=== PATIENT | female | born 1970 | race Caucasian/White ===

== ENCOUNTER → 2018-05-26 16:29 | Outpatient (CLI) | payer OTHER, SELFPAY ==
[2018-05-26 17:13] LABS: Appearance Urine UA CLEAR; Bilirubin Urine UA NEGATIVE (NEGATIVE); Color Urine UA YELLOW; Glucose Urine UA NEGATIVE (Normal); Ketones Urine UA TRACE (NEGATIVE); Leukocyte Esterase Urine UA NEGATIVE (NEGATIVE); Nitrite Urine UA NEGATIVE (Negative); Occult Blood Urine UA 3+ (Negative); Protein Urine UA NEGATIVE (Negative); Specific Gravity Urine UA 1.025 (1.000-1.035); Urobilinogen Urine UA 0.2 E.U./dL (0.2)
[2018-05-26 17:28] LABS: Bacteria Urine Few (2-10); Calcium Oxalate Crystals Urine Few; Culture Indicated Urine Cult Not Indicated; RBC Urine 1-5/HPF (0-5/HPF); Squamous Epithelial Cell Urine 0-1 /HPF; WBC Urine 1-5/HPF (0-5/HPF)
[2018-05-26 17:48] LABS: Add Manual Diff / Slide Review NO; Basophils Percent Auto 0.8 % (0-2); Eosinophils Percent Auto 1.7 % (2-4); Hematocrit 38.6 % (36-46); Hemoglobin 12.9 g/dL (12.0-16.0); Lymphocytes Percent Auto 25.8 % (25-40); Mean Corpuscular HGB Conc 33.4 % (30-36); Mean Corpuscular Hemoglobin 31.3 PG (26-34); Mean Corpuscular Volume 93.8 fL (80-100); Monocytes Percent Auto 5.1 % (3-14); Neutrophils Absolute Auto 7900 /uL (3000-5900); Neutrophils Percent Auto 66.6 % (50-75); Platelet Count 390 X10^3/uL (150-400); Red Blood Cell Count 4.11 X10^6/uL (4.0-5.2); Red Cell Distribution Width 13.7 % (11.6-14.8); White Blood Cell Count 11.9 X10^3/uL (4.5-11.0)
[2018-05-26 18:10] LABS: BUN Creatinine Ratio 28.8 (6-22); Blood Urea Nitrogen 23 mg/dL (7-17); Calcium 9.6 mg/dL (8.4-10.2); Carbon Dioxide 27 mmol/L (22-32); Chloride 102 mmol/L (98-107); Estimated Glomerular Filt Rate > 60.0 mL/min (>60); Glucose 105 mg/dL (70-100); HEMOLYSIS < 15 (0-50); Potassium 4.4 mmol/L (3.4-5.1); Sodium 141 mmol/L (137-145)
== END ==
PROVIDERS: Visit Provider Orthopaedic Surgery
DX: Z01.818 Encounter for other preprocedural examination (principal); N39.9 Disorder of urinary system, unspecified; R73.09 Other abnormal glucose
CPT/HCPCS: 36415; 80048; 81001; 83036; 85025; 93005; 93010

== ENCOUNTER 2018-06-10 09:01 | Day surgery (SDC) | payer OTHER, SELFPAY ==
[2018-05-26 08:54] VITALS: BMI 36.8
[2018-06-10] VITALS (12 sets, daily range): BP systolic 119–151; BP diastolic 55–90; PULSE 56–72; RESP 12–18; TEMP 36.2–37.4; O2SAT 93–100; BMI 36.8
--- NOTE | 2018-06-10 06:00 | DI.RAD.S_ITS ---
PROCEDURE: XR KNEE RT 1TO2V INDICATIONS: TOTAL RIGHT KNEE TECHNIQUE: 2 view(s) of the knee acquired. COMPARISON: None. FINDINGS: Bones: Patient is status post knee joint arthroplasty. Hardware components are in expected positions. Visualized bony structures are intact. Soft tissues: Overlying postoperative changes are noted. IMPRESSION: Post right total knee arthroplasty with anatomic right knee alignment. Dictated by: Jamaal Hardy M.D. on 06/10/2018 at 15:17 Approved by: Jamaal Hardy M.D. on 06/10/2018 at 15:18
[2018-06-10] MEDS: LACTATED RINGERS 1,000 ML 42 ML IV ×2 (09:20→12:28)
[2018-06-10] MEDS: VANCOMYCIN 1,000 MG/200 ML FROZ.PIGGY 200 MG IV (09:35)
[2018-06-10] MEDS: ACETAMINOPHEN 325 MG TABLET 975 MG PO ×3 (10:19→22:00)
[2018-06-10] MEDS: PREGABALIN 75 MG CAPSULE PO (10:20)
[2018-06-10] MEDS: CELECOXIB 200 MG CAPSULE PO (10:20)
[2018-06-10] MEDS: fentaNYL 100 MCG/2 ML INJ IV (10:32)
[2018-06-10] MEDS: MIDAZOLAM 2 MG/2 ML VIAL IV (10:32)
[2018-06-10] MEDS: CEFAZOLIN 2 GM/100 ML FROZ.PIGGY IV ×2 (10:51→20:00)
--- NOTE | 2018-06-10 10:56 | PM.PREOP ---
Pre-operative Note Interval Note Pre-op Check: Yes History & Physical Reviewed by Physician and Yes Exam Performed Changes: No
--- NOTE | 2018-06-10 10:56 | PM.OP.1 ---
Operative Date/Time/Diagnoses Date of procedure: 06/10/18 Time of procedure: 10:57 Pre-op diagnosis: right knee OA Post-op diagnosis: same Procedure & Clinicians Procedure: right total knee arthroplasty Same procedure as scheduled: Yes Indications: The patient has had progressively worsening right knee pain with radiographic changes consistent with arthritis. Non-operative management has failed and the patient has requested total knee replacement. The risks, benefits and alternatives to surgery were discussed with the patient prior to proceeding. Risks discussed included, but were not limited to, failure to relieve pain, stiffness, infection, nerve damage, deep venous thrombosis, pulmonary embolism, stroke, coma, heart attack, permanent paralysis and , as well as the potential need for eventual revision of the prosthetic. Surgeon: Chantelle Herrera Artificial Flower Maker: Carlo Zavala Anesthesia Type: General, Spinal and Peripheral nerve block Operative Notes Findings: severe right knee OA Closure Type: primary Specimen(s): none sent Implants & Drains: Herrera and Nephew Ivana BCS2 size 2 femur, size 2 tibia, +10 poly, patella 32 x 7.5 Applied: drain(s) Estimated Blood Loss (mL): 250 Blood products transfused: none Tourniquet time (min): 71 Procedure in detail: The patient was seen in the pre-operative area, where the patient identified the right knee as the operative site and this was marked with my initials. The patient received pre-operative antibiotics, and was taken to the operating room and placed on the operative table in the supine position. After satisfactory anesthesia, a daytime babysitter out was performed. The right leg was encircled with a tourniquet about the proximal thigh, and the leg was prepared from the toes to the tourniquet with ChloroPrep in the usual fashion and draped through sterile drapes. The leg was elevated and exsanguinated with Eschmark bandage and the tourniquet inflated to [250] mmHg pressure. The knee was approached through an approximately 18 cm incision centered over the patella and carried into the knee through a medial parapatellar arthrotomy. A portion of the medial and lateral meniscus was resected. Soft tissue was carefully mobilized around the patella the patella was measured with a caliper. Bone was resected from the patella and the patellar height was reconstituted with up an appropriate sized patellar component. For a cover was then placed on the patella. A small amount of additional medial and lateral meniscus was resected. The visionare guide fit well to the distal femur. It looked like an appropriate distal femoral cut and the cut was made without difficulty. The rotation was assessed and the appropriate size femoral guide was placed on the distal femur and finishing cuts were made. There is no evidence of notching. The anterior, posterior and chamfer cuts were then made. The posterior osteophytes and soft tissues were then removed. The posterior capsule was injected with part of a mixture of 60 ml 0.25% Marcaine mixed with 20 ml Exparel for post operative pain control. The remainder of this mixture was injected into the capsule and subcutaneous tissues during cement curing. The tibia was prepared and the visionaire guide fit well to the distal tibia. The rotation was assessed. The patient was placed in extension residual medial and lateral meniscus as well as any residual bone was carefully resected. [No] additional tibia was resected. Hemostasis was achieved especially posteriorly. Additional local was injected into the posterior capsule. The extension gap was assessed and additional releases for gap balancing were performed as necessary. It was checked with the gap cad designer drafter. The femoral component was trial was placed and the notch was finished. Trial tibial and femoral components were then placed and the knee placed through a range of motion. Range of motion was [0-130], with good stability throughout the range. The trials were then removed, and the tibia was finished. The bone was prepared with pulsatile lavage, and dried with a sponge. Cement was applied and the final prosthetics placed. Excess cement was removed during and after cement curing. A brief Betadine soak was performed. After confirming there was no extruded cement posteriorly, the final tibial insert was placed. The knee was copiously irrigated and the tourniquet deflated. Hemostasis was obtained with the [Aquamantys system]. A drain was placed and brought out superolaterally. The capsule was closed with interrupted # 1 nonabsorbable suture. The subcutaneous layer was closed with barbed sutures, and the skin with a running 3-0 V-Lock suture and Surgical glue. An Aquacel Ag dressing was applied and the patient was taken to recovery having tolerated the procedure well. Complications: none Condition: stable Disposition: same day surgery Plan for aftercare: The patient will be maintained on a standard total knee replacement protocol with weight bearing as tolerated. The patient will receive aspirin and sequential compression devices for DVT prophylaxis. The patient will be discharged home when safe for the home environment.
--- NOTE | 2018-06-10 11:04 | P.OP_ITS ---
Operative Date/Time/Diagnoses Date of procedure: 06/10/18 Time of procedure: 10:57 Pre-op diagnosis: right knee OA Post-op diagnosis: same Procedure & Clinicians Procedure: right total knee arthroplasty Same procedure as scheduled: Yes Indications: The patient has had progressively worsening right knee pain with radiographic changes consistent with arthritis. Non-operative management has failed and the patient has requested total knee replacement. The risks, benefits and alternatives to surgery were discussed with the patient prior to proceeding. Risks discussed included, but were not limited to, failure to relieve pain, stiffness, infection, nerve damage, deep venous thrombosis, pulmonary embolism, stroke, coma, heart attack, permanent paralysis and , as well as the potential need for eventual revision of the prosthetic. Surgeon: Chantelle Herrera Coding Educator: Carlo Zavala Anesthesia Type: General, Spinal and Peripheral nerve block Operative Notes Findings: severe right knee OA Closure Type: primary Specimen(s): none sent Implants & Drains: Herrera and Nephew Ivana BCS2 size 2 femur, size 2 tibia, + 10 poly, patella 32 x 7.5 Applied: drain(s) Estimated Blood Loss (mL): 250 Blood products transfused: none Tourniquet time (min): 71 Procedure in detail: The patient was seen in the pre-operative area, where the patient identified the right knee as the operative site and this was marked with my initials. The patient received pre-operative antibiotics, and was taken to the operating room and placed on the operative table in the supine position. After satisfactory anesthesia, a manager multimedia out was performed. The right leg was encircled with a tourniquet about the proximal thigh, and the leg was prepared from the toes to the tourniquet with ChloroPrep in the usual fashion and draped through sterile drapes. The leg was elevated and exsanguinated with Eschmark bandage and the tourniquet inflated to [250] mmHg pressure. The knee was approached through an approximately 18 cm incision centered over the patella and carried into the knee through a medial parapatellar arthrotomy. A portion of the medial and lateral meniscus was resected. Soft tissue was carefully mobilized around the patella the patella was measured with a caliper. Bone was resected from the patella and the patellar height was reconstituted with up an appropriate sized patellar component. For a cover was then placed on the patella. A small amount of additional medial and lateral meniscus was resected. The visionare guide fit well to the distal femur. It looked like an appropriate distal femoral cut and the cut was made without difficulty. The rotation was assessed and the appropriate size femoral guide was placed on the distal femur and finishing cuts were made. There is no evidence of notching. The anterior, posterior and chamfer cuts were then made. The posterior osteophytes and soft tissues were then removed. The posterior capsule was injected with part of a mixture of 60 ml 0.25% Marcaine mixed with 20 ml Exparel for post operative pain control. The remainder of this mixture was injected into the capsule and subcutaneous tissues during cement curing. The tibia was prepared and the visionaire guide fit well to the distal tibia. The rotation was assessed. The patient was placed in extension residual medial and lateral meniscus as well as any residual bone was carefully resected. [No] additional tibia was resected. Hemostasis was achieved especially posteriorly. Additional local was injected into the posterior capsule. The extension gap was assessed and additional releases for gap balancing were performed as necessary. It was checked with the gap probate paralegal. The femoral component was trial was placed and the notch was finished. Trial tibial and femoral components were then placed and the knee placed through a range of motion. Range of motion was [ 0-130], with good stability throughout the range. The trials were then removed, and the tibia was finished. The bone was prepared with pulsatile lavage, and dried with a sponge. Cement was applied and the final prosthetics placed. Excess cement was removed during and after cement curing. A brief Betadine soak was performed. After confirming there was no extruded cement posteriorly, the final tibial insert was placed. The knee was copiously irrigated and the tourniquet deflated. Hemostasis was obtained with the [Aquamantys system]. A drain was placed and brought out superolaterally. The capsule was closed with interrupted # 1 nonabsorbable suture. The subcutaneous layer was closed with barbed sutures, and the skin with a running 3 -0 V-Lock suture and Surgical glue. An Aquacel Ag dressing was applied and the patient was taken to recovery having tolerated the procedure well. Complications: none Condition: stable Disposition: same day surgery Plan for aftercare: The patient will be maintained on a standard total knee replacement protocol with weight bearing as tolerated. The patient will receive aspirin and sequential compression devices for DVT prophylaxis. The patient will be discharged home when safe for the home environment.
[2018-06-10] MEDS: BUPIVACAINE LIPOSOME 266 MG/20 ML VIAL INJ (11:43)
[2018-06-10] MEDS: BUPIVACAINE 0.25% W/ EPI VIAL 50 ML INJ (11:44)
[2018-06-10] MEDS: POVIDONE-IODINE 15 ML, SODIUM CHLORIDE 0.9% 250 ML TOP (12:48)
[2018-06-10] MEDS: LACTATED RINGERS 1,000 ML 125 ML IV ×2 (14:53→23:59)
[2018-06-10] MEDS: OXYCODONE IR 5 MG TABLET PO ×3 (14:54→22:25)
--- NOTE | 2018-06-10 15:26 | PC.NURSE ---
Pts R.knee dressing CDI. Pt has a hemovac present. Given 1 percolone for complaints of 7/10 pain. She is able to lift her leg up on her own. No bailon present, Pt has not had to void yet. Tolerating OJ and pudding. O comlaints of nausea. IVF of LR at 125cc/hr infusing. Pt is resting comfortably. Family in pts room.
--- NOTE | 2018-06-10 16:30 | PT.IIE ---
Current Diagnoses Unilateral primary osteoarthritis, right knee (06/10/18) Surgery Performed Operation Date: 06/10/18 10:30 Actual Procedures p Total Knee Arthroplasty(Right) - Chantelle Herrera MD Surgical History (Last Updated 05/26/18 @ 09:09 by Yvrose Roth, RN) History of section (Acute) S/P wrist surgery (Acute) Medical History (Last Updated 05/26/18 @ 09:09 by Yvrose Roth RN) Gestational diabetes (Acute) HTN (hypertension) (Acute) Physical Therapy Inpatient Evaluation/Re-Eval M1 PT/OT-IP Prior Functional Status Start: 06/10/18 17:10 Freq: NEEDED Status: Active Protocol: Document 06/10/18 16:30 AB (Rec: 06/10/18 17:20 AB [id number]) Medical Review Prior Functional Status Medical History Reviewed Yes Communication able to make needs known Mobility and Gait pt stated that she is independent with all mobilities and ambulation without AD Social History Household Members spouse children Living Arrangements House Number of Floors (Floors) Two Floors Number of Stairs To Enter/Railing? 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 PT-IP Current Condition Start: 06/10/18 17:10 Freq: NEEDED Status: Active Protocol: Document 06/10/18 16:30 AB (Rec: 06/10/18 17:20 AB [id number]) Physical Therapy Current Condition Current Condition Evaluation Date 06/10/18 Treatment Diagnosis s/p R TKA Onset Date 06/10/18 Weight Bearing Status Weight Bearing Status Weight Bear as Tolerated M3 PT-IP Subjective Start: 06/10/18 17:10 Freq: NEEDED Status: Active Protocol: Document 06/10/18 16:30 AB (Rec: 06/10/18 17:20 AB [id number]) Subjective Physical Therapy Visit Type Type Initial Evaluation Visit Start Time 16:00 Visit Stop Time 17:10 Total Visit Minutes 40 Number of FITTER MACHINIST Visits 0 Therapy Pain Assessment Pain When Pain Assessed At Rest Pain Present Pain Present Pain Reported Location Right Knee Intensity 4 Scale Used Numeric (1 - 10) Pain Management Techniques Apply Cold Re-positioning Timing of Activity with Medications M4 PT-IP Mobility and Gait Start: 06/10/18 17:10 Freq: NEEDED Status: Active Protocol: Document 06/10/18 16:30 AB (Rec: 06/10/18 17:20 AB [id number]) PT-Bed Mobility Assessment Supine to Sit Supine to Sit Minimal Assistance 1 Person Assistance Sit to Supine Sit to Supine Minimal Assistance Scooting Scooting to Edge of Bed Minimal Assistance PT-Transfer Assessment Sit to and From Stand Sit to and from Stand Contact Guard Assistance Minimal Assistance Equipment Transfer Assistive Device Gait Belt Front Wheeled Walker Orthotic/Prosthetic Devices or Brace: No Gait Assessment Gait Gait Assistance Required: Contact Guard Assist Minimum Assistance Distance (Feet) 25 Able to Maintain Weight Bearing Status Yes During Gait Assistive Devices Assistive Device Gait Belt Front Wheeled Walker Orthotic/Prosthetic Devices or Brace: No Gait Deviations General Gait Pattern Antalgic Decreased Stride Length Decreased Feet Clearance Factors Limiting Gait Function Factors Limiting Gait Function Decreased Activity Tolerance Decreased Strength Limited Range of Motion Pain Poor Balance Poor Safety Awareness Comments Gait Comments pt ambulated from bed to the toilet using FWW ~ 25 ft CGA to min A and cues. pt required min A for sit to stand from the toilet using grab bar to assist and ambulated to the chiar using FWW ~ 12 ft CGA to min A. set pt up on chair for dinner. call light and table placed within reach. PT-Balance Assessment Sitting Balance and Reactions Static Sitting Balance Ability Good Dynamic Sitting Balance Ability Good Standing Balance and Reactions Static Standing Balance Ability Fair Dynamic Standing Balance Ability Fair Device Used FWW M5 PT-IP Objective Assessments Start: 06/10/18 17:10 Freq: NEEDED Status: Active Protocol: Document 06/10/18 16:30 AB (Rec: 06/10/18 17:20 AB [id number]) Orientation Orientation/Cognition Level of Alertness Alert Orientation Name Age Birthday Month Date Year Day of Week Place Situation Safety Awareness Understands Safety Issues Gross Range of Motion Lower Extremity ROM Assessment Right Impaired Impairments R knee flexion ~ 40 degrees Strength Lower Extremity Strength Assessment Bilaterally Impaired Comments Strength Comments RLE 3+/5 LLE: 4-/5 M6 PT-IP Treatment Start: 06/10/18 17:10 Freq: NEEDED Status: Active Protocol: Document 06/10/18 16:30 AB (Rec: 06/10/18 17:20 AB [id number]) Physical Therapy Treatment Education Education Provided Precautions Weight Bearing Status Post-Op Packet Safety M7 PT-IP Assessment and Plan Start: 06/10/18 17:10 Freq: NEEDED Status: Active Protocol: Document 06/10/18 16:30 AB (Rec: 06/10/18 17:20 AB [id number]) PT Summary Assessment and Plan Potential Rehabilitation Potential Good Status of Condition at Evaluation Stable Summary Impairments Pain ROM Strength Balance Bed Mobility Transfers Gait Activity Tolerance Assessment Summary pt requiring CGA to min A with mobility and will likely proegress during hospital stay . pt plans to go home with spouse to assist her. will also need to complete stair training prior to d/c. pt stated that she is set up for outpt PT. Goals Bed Mobility Goal Standby Assistance Transfer Goal Standby Assistance Front Wheeled Walker Gait Goal Standby Assistance Front Wheel Walker Gait Distance 150 Other Goals Short term goals: increas bed mobility, transfers and ambulation using FWW ~ 100 ft SBA. longterm goals: increase ambulation using FWW ~ 150 ft SBA; up/down 2 steps with R rail ascending SBA Days to Meet Goals 3 Frequency of Treatment Frequency Of Treatment Twice a Day Treatment Plan Physical Therapy Treatment Plan Bed Mobility Training Transfer Training Gait Training Therapeutic Exercise Balance Retraining Post Op Education Discharge Planning Hot or Cold Pack Neuromuscular Re-ed Coordination Retraining Manual Therapy Recommendations To Nursing Amount of Assist Needed 1 Person Assist Discharge Recommendations PT Discharge Recommendations Home with Assistance Outpatient PT
[2018-06-10] MEDS: LORazepam 2 MG/ML SYRINGE 0.5 MG IV (18:04)
[2018-06-10] MEDS: hydrOXYzine pamoate 25 MG CAPSULE PO (18:05)
[2018-06-10] MEDS: ASPIRIN EC 81 MG TABLET PO (22:00)
[2018-06-10] MEDS: DOCUSATE 100 MG CAPSULE PO (22:00)
[2018-06-10] MEDS: LORazepam 1 MG TABLET 2 MG PO (22:25)
[2018-06-11 00:39] VITALS: BP 150/67; PULSE 76; RESP 16; TEMP 36.9; O2SAT 96
[2018-06-11] MEDS: CEFAZOLIN 2 GM/100 ML FROZ.PIGGY IV (02:42)
[2018-06-11] MEDS: OXYCODONE IR 5 MG TABLET PO ×3 (05:53→14:17)
[2018-06-11 06:57] VITALS: BP 155/81; PULSE 68; RESP 16; TEMP 36.4; O2SAT 98
[2018-06-11 07:03] LABS: Hemoglobin 10.8 g/dL (12.0-16.0)
[2018-06-11 08:00] VITALS: BP 136/78; PULSE 67; RESP 18; TEMP 37.1; O2SAT 97
[2018-06-11] MEDS: ASPIRIN EC 81 MG TABLET PO (08:08)
[2018-06-11] MEDS: ATENOLOL 50 MG TABLET PO (08:08)
[2018-06-11] MEDS: IBUPROFEN 600 MG TABLET PO (08:09)
[2018-06-11] MEDS: DOCUSATE 100 MG CAPSULE PO (08:09)
[2018-06-11] MEDS: hydrOXYzine pamoate 25 MG CAPSULE PO (08:09)
--- NOTE | 2018-06-11 10:38 | PT.IPTN ---
Current Diagnoses Unilateral primary osteoarthritis, right knee (06/10/18) Surgery Performed Operation Date: 06/10/18 10:30 Actual Procedures p Total Knee Arthroplasty(Right) - Chantelle Herrera MD Physical Therapy Treatment Note M2 PT-IP Current Condition Start: 06/10/18 17:10 Freq: NEEDED Status: Active Protocol: Document 06/10/18 16:30 AB (Rec: 06/10/18 17:20 AB [id number]) Physical Therapy Current Condition Current Condition Evaluation Date 06/10/18 Treatment Diagnosis s/p R TKA Onset Date 06/10/18 Weight Bearing Status Weight Bearing Status Weight Bear as Tolerated M3 PT-IP Subjective Start: 06/10/18 17:10 Freq: NEEDED Status: Active Protocol: Document 06/11/18 10:26 SA (Rec: 06/11/18 10:37 SA [id number]) Subjective Physical Therapy Visit Type Type Treatment Note Visit Start Time 09:02 Visit Stop Time 09:32 Total Visit Minutes 30 Number of [employer] PHARMAC[employer] TECHNICIAN Visits 1 Physical Therapy Visit Comments Patient Comments Feeling sore but Pt is comfortable when not moving and about a 5/10 with walking. Medicated prior to session. Therapy Pain Assessment Pain When Pain Assessed During Mobility Pain Present Pain Present Pain Reported Location Right Knee Intensity 5 Scale Used Numeric (1 - 10) Pain Management Techniques Apply Cold Re-positioning Timing of Activity with Medications M4 PT-IP Mobility and Gait Start: 06/10/18 17:10 Freq: NEEDED Status: Active Protocol: Document 06/11/18 10:26 SA (Rec: 06/11/18 10:37 SA [id number]) PT-Bed Mobility Assessment Supine to Sit Supine to Sit Contact Guard Assistance 1 Person Assistance Sit to Supine Sit to Supine Contact Guard Assistance Scooting Scooting to Edge of Bed Contact Guard Assistance PT-Transfer Assessment Sit to and From Stand Sit to and from Stand Contact Guard Assistance 1 Person Assistance Use of Upper Extremities Equipment Transfer Assistive Device Gait Belt Front Wheeled Walker Orthotic/Prosthetic Devices or Brace: No Transfers Transfer Destination Chair Transfer Technique Stand Step Pivot Transfer Ability Level of Assist Contact Guard Assistance Comments Mobility Comments Pt WBing heavily through UEs/ FWW with mobility, cues for increasing WBing through RLE and safe use of FWW. Gait Assessment Gait Gait Assistance Required: Contact Guard Assist Distance (Feet) 125 Able to Maintain Weight Bearing Status Yes During Gait Assistive Devices Assistive Device Gait Belt Front Wheeled Walker Orthotic/Prosthetic Devices or Brace: No Gait Deviations General Gait Pattern Antalgic Decreased Stride Length Decreased Feet Clearance Factors Limiting Gait Function Factors Limiting Gait Function Decreased Activity Tolerance Decreased Strength Limited Range of Motion Pain Poor Balance Poor Safety Awareness Comments Gait Comments Pt able to walk 25 + 50 + 50 feet with CGA and FWW, safe with turning and cues for increased RLE WBing. Increase in pain from 1 to 5 with gait. Stair Climbing Assessment Evaluation Level of Assist On Stairs Contact Guard Assistance Devices Stair Climbing Assistive Devices Left Railing Right Railing Technique/Endurance Stair Climbing Direction Ascend and Descend Stair Climbing Technique Step to Step Number of Steps Climbed 3 Query Text: Stair Climbing Set # Repetitions (reps) 1 Comments Stair Climbing Comments Education for safe technique, pt able to demonstrate safety with B rails and step to gait pattern. M5 PT-IP Objective Assessments Start: 06/10/18 17:10 Freq: NEEDED Status: Active Protocol: Document 06/10/18 16:30 AB (Rec: 06/10/18 17:20 AB [id number]) Orientation Orientation/Cognition Level of Alertness Alert Orientation Name Age Birthday Month Date Year Day of Week Place Situation Safety Awareness Understands Safety Issues Gross Range of Motion Lower Extremity ROM Assessment Right Impaired Impairments R knee flexion ~ 40 degrees Strength Lower Extremity Strength Assessment Bilaterally Impaired Comments Strength Comments RLE 3+/5 LLE: 4-/5 M6 PT-IP Treatment Start: 06/10/18 17:10 Freq: NEEDED Status: Active Protocol: Document 06/11/18 10:26 SA (Rec: 06/11/18 10:37 [id number]) Physical Therapy Treatment Exercises Exercises Ankle Pumps Seated Knee Flexion/Extension Education Education Provided Precautions Weight Bearing Status Post-Op Packet Safety M7 PT-IP Assessment and Plan Start: 06/10/18 17:10 Freq: NEEDED Status: Active Protocol: Document 06/11/18 10:26 SA (Rec: 06/11/18 10:37 [id number]) PT Summary Assessment and Plan Potential Rehabilitation Potential Good Status of Condition at Evaluation Stable Summary Assessment Summary Pt had daughter present for session and very supportive. Pt able to navigate stairs and ambulate with CGA and safety cues. To continue with OP PT after d/c. Frequency of Treatment Frequency Of Treatment Twice a Day Recommendations To Nursing Amount of Assist Needed 1 Person Assist Discharge Recommendations PT Discharge Recommendations Home with Assistance Outpatient PT
[2018-06-11] MEDS: ACETAMINOPHEN 325 MG TABLET 975 MG PO (10:46)
--- NOTE | 2018-06-11 10:52 | PM.DS.1 ---
History of Present Illness Date Patient Seen: 06/11/18 Time Patient Seen: 10:55 Chief complaint: [id number] Narrative: The patient has had progressively worsening right knee pain with radiographic changes consistent with arthritis. Non-operative management has failed and the patient has requested total knee replacement. The risks, benefits and alternatives to surgery were discussed with the patient prior to proceeding. Risks discussed included, but were not limited to, failure to relieve pain, stiffness, infection, nerve damage, deep venous thrombosis, pulmonary embolism, stroke, coma, heart attack, permanent paralysis and , as well as the potential need for eventual revision of the prosthetic. Discharge Providers Primary care physician: Allan Lin MD Consults: 06/10/18 06:00 Consult to Anesthesiology Routine Comment: Consulting Provider: Anesthesiologist Reason for consultation: Regional block for post operative pain control 06/10/18 14:18 Consult to Discharge Planning Routine Comment: Consult to Physical Therapy Evaluate & Treat Comment: oob today ambulating, d/c to home in pm Physician Instructions: postop TKA protocol Consult to Respiratory Therapy Evaluate & Treat Comment: Physician Instructions: Evaluate and treat Discharge provider: Carolann Long PA-C Discharge Date: 06/11/18 Summary Discharge Diagnosis: right knee OA Hospital Course: Patient was admitted status post R total knee arthroplasty by Dr. eHrrera on 06/10/18. Patient tolerated procedure well with no major complications. Patient transferred to floor and seen by PT who recommended patient be discharged home with outpatient PT. Her pain was well controlled with 975mg Tylenol, 25mg of Vistaril and 5mg oxycodone. Patient is stable and ready for discharge on 06/11/18. Patient and daughter is home to assist her upon discharge. Calfs are soft, non tender and compressible bilaterally. Status at Discharge Functional status at discharge: uses cane/walker Overall status at discharge: patient is progressing back to baseline Time Spent with Patient Less than 30 minutes Exam Vital Signs (past 8 hours): - 06/11/18 06:57 06/11/18 08:00 Temperature 97.6 F 98.8 F Pulse Rate 68 67 Respiratory Rate 16 18 Blood Pressure 155/81 H 136/78 Pulse Oximetry 98 97 Oxygen Delivery Method Room Air Oxygen Flow Rate 0 Narrative Exam Narrative: Patient examined in chair. Sitting upright in chair comfortably in no signs of distress. Patient is AOx3. Daughter is sitting bedside. Radial and dorsalis pedis pulses 2+ and symmetric. Adequate muscle strength in dorsiflexion, plantarflexion and [employer] administrator bilaterally. R knee dressing CDI. Hemovac drain noted on R knee with moderate output. Sensation to light touch intact in LE bilaterally. Calfs are soft, non tender and compressible bilaterally. Patient saw PT this morning and reports walking the halls. She reports that her pain is manageable at this time. Patient denies any fever, chills, chest pain, SOB, nausea or vomiting. Patient is [employer] and reports having post op prescription already filled at home. Patient would like to go home today. and daughter is home to assist her. Objective Labs Result Diagrams: 06/11/18 06:40 Labs: Laboratory Results - last 24 hr 06/11/18 06:40 Hgb 10.8 L Hct 32.0 L Discharge Plan Discharge Plan Patient Disposition: Home Discharge comment: Aspirin 81mg for DVT prophylaxis Discharge Med Rec/Prescriptions Prescriptions: Continue acetaminophen [Tylenol Arthritis Pain] 650 mg Tablet Extended Release 1,300 mg PO QAM PRN (Reason: pain) RF: 0 diclofenac-misoprostol 50-200 mg-mcg Tablet,Ir,Delayed Rel,Biphasic 1 tab PO TID RF: 0 atenolol 50 mg Tablet 50 mg PO DAILY RF: 0 Follow up/Referrals: Allan Lin MD [Primary Care Provider] - Chantelle Herrera MD [Physician] - As previously scheduled (Follow up at [facility] with Dr. Herrera on 06/16/18 at scheduled appointment.) Discharge Orders: Discharge (Order); Ordered 06/11/18 Ordered By: Carolann Long Provider Discharge Instructions Diet: Carb-consistent/Diabetic Activity: Maintain on a standard total knee replacement protocol with weight bearing as tolerated. Continue to use cane/walker until cleared by PT. Cold/Heat Therapy: Cold compress as needed. Skin/Wound/Dressing Care Report to your healthcare provider any signs of infection, such as:: chills, fever, night sweats, increased pain and unusual drainage Dressing: Keep clean and dry. Visit Report/Discharge Packet Instructions: DI for Knee Replacement Stand Alone Forms: Surgery Discharge Discharge Data Primary Care Provider: Allan Lin Attending Provider: Chantelle Herrera Quality VTE Deep Vein Thrombosis/Pulmonary Embolism Present on Admission: No
--- NOTE | 2018-06-11 11:05 | P.DS_ITS ---
History of Present Illness Date Patient Seen: 06/11/18 Time Patient Seen: 10:55 Chief complaint: [id number] Narrative: The patient has had progressively worsening right knee pain with radiographic changes consistent with arthritis. Non-operative management has failed and the patient has requested total knee replacement. The risks, benefits and alternatives to surgery were discussed with the patient prior to proceeding. Risks discussed included, but were not limited to, failure to relieve pain, stiffness, infection, nerve damage, deep venous thrombosis, pulmonary embolism, stroke, coma, heart attack, permanent paralysis and , as well as the potential need for eventual revision of the prosthetic. Discharge Providers Primary care physician: Allan Lin MD Consults: 06/10/18 06:00 Consult to Anesthesiology Routine Comment: Consulting Provider: Anesthesiologist Reason for consultation: Regional block for post operative pain control 06/10/18 14:18 Consult to Discharge Planning Routine Comment: Consult to Physical Therapy Evaluate & Treat Comment: oob today ambulating, d/c to home in pm Physician Instructions: postop TKA protocol Consult to Respiratory Therapy Evaluate & Treat Comment: Physician Instructions: Evaluate and treat Discharge provider: Carolann Long PA-C Discharge Date: 06/11/18 Summary Discharge Diagnosis: right knee OA Hospital Course: Patient was admitted status post R total knee arthroplasty by Dr. Herrera on 06/10/18. Patient tolerated procedure well with no major complications. Patient transferred to floor and seen by PT who recommended patient be discharged home with outpatient PT. Her pain was well controlled with 975mg Tylenol, 25mg of Vistaril and 5mg oxycodone. Patient is stable and ready for discharge on 06/11/18. Patient and daughter is home to assist her upon discharge. Calfs are soft, non tender and compressible bilaterally. Status at Discharge Functional status at discharge: uses cane/walker Overall status at discharge: patient is progressing back to baseline Time Spent with Patient Less than 30 minutes Exam Vital Signs (past 8 hours): - 06/11/18 06:57 06/11/18 08:00 Temperature 97.6 F 98.8 F Pulse Rate 68 67 Respiratory Rate 16 18 Blood Pressure 155/81 H 136/78 Pulse Oximetry 98 97 Oxygen Delivery Method Room Air Oxygen Flow Rate 0 Narrative Exam Narrative: Patient examined in chair. Sitting upright in chair comfortably in no signs of distress. Patient is AOx3. Daughter is sitting bedside. Radial and dorsalis pedis pulses 2+ and symmetric. 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 R knee dressing CDI. Hemovac drain noted on R knee with moderate output. Sensation to light touch intact in LE bilaterally. Calfs are soft, non tender and compressible bilaterally. Patient saw PT this morning and reports walking the halls. She reports that her pain is manageable at this time. Patient denies any fever, chills, chest pain, SOB, nausea or vomiting. Patient is [employer] and reports having post op prescription already filled at home. Patient would like to go home today. and daughter is home to assist her. Objective Labs Result Diagrams: 06/11/18 06:40 Labs: Laboratory Results - last 24 hr 06/11/18 06:40 Hgb 10.8 L Hct 32.0 L Discharge Plan Discharge Plan Patient Disposition: Home Discharge comment: Aspirin 81mg for DVT prophylaxis Discharge Med Rec/Prescriptions Prescriptions: Continue acetaminophen [Tylenol Arthritis Pain] 650 mg Tablet Extended Release 1,300 mg PO QAM PRN (Reason: pain) RF: 0 diclofenac-misoprostol 50-200 mg-mcg Tablet,Ir,Delayed Rel,Biphasic 1 tab PO TID RF: 0 atenolol 50 mg Tablet 50 mg PO DAILY RF: 0 Follow up/Referrals: Allan Lin MD [Primary Care Provider] - Chantelle Herrera MD [Physician] - As previously scheduled ([place] [facility] on 06/16/18 at scheduled appointment.) Discharge Orders: Discharge (Order); Ordered 06/11/18 Ordered By: Carolann Long Provider Discharge Instructions Diet: Carb-consistent/Diabetic Activity: Maintain on a standard total knee replacement protocol with weight bearing as tolerated. Continue to use cane/walker until cleared by PT. Cold/Heat Therapy: Cold compress as needed. Skin/Wound/Dressing Care Report to your healthcare provider any signs of infection, such as:: chills, fever, night sweats, increased pain and unusual drainage Dressing: Keep clean and dry. Visit Report/Discharge Packet Instructions: DI for Knee Replacement Stand Alone Forms: Surgery Discharge Discharge Data Primary Care Provider: Allan Lin Attending Provider: Chantelle Herrera Quality VTE Deep Vein Thrombosis/Pulmonary Embolism Present on Admission: No
--- NOTE | 2018-06-11 13:54 | PT.IPTN ---
Current Diagnoses Unilateral primary osteoarthritis, right knee (06/10/18) Surgery Performed Operation Date: 06/10/18 10:30 Actual Procedures p Total Knee Arthroplasty(Right) - Chantelle Herrera MD Physical Therapy Treatment Note M2 PT-IP Current Condition Start: 06/10/18 17:10 Freq: NEEDED Status: Active Protocol: Document 06/10/18 16:30 AB (Rec: 06/10/18 17:20 AB [id number]) Physical Therapy Current Condition Current Condition Evaluation Date 06/10/18 Treatment Diagnosis s/p R TKA Onset Date 06/10/18 Weight Bearing Status Weight Bearing Status Weight Bear as Tolerated M3 PT-IP Subjective Start: 06/10/18 17:10 Freq: NEEDED Status: Active Protocol: Document 06/11/18 13:44 SA (Rec: 06/11/18 13:54 SA [id number]) Subjective Physical Therapy Visit Type Type Treatment Note Visit Start Time 13:05 Visit Stop Time 13:32 Total Visit Minutes 27 Number of HARNESS MENDER Visits 2 Physical Therapy Visit Comments Patient Comments Pt getting ready for d/c home, nursing in to remove drain/IV . Pt agreeable to getting up and walking. Therapy Pain Assessment Pain When Pain Assessed During Mobility Pain Present Pain Present Pain Reported Location Right Knee Intensity 3 Scale Used Numeric (1 - 10) Pain Management Techniques Apply Cold Re-positioning Timing of Activity with Medications M4 PT-IP Mobility and Gait Start: 06/10/18 17:10 Freq: NEEDED Status: Active Protocol: Document 06/11/18 13:44 SA (Rec: 06/11/18 13:54 SA [id number]) PT-Bed Mobility Assessment Supine to Sit Supine to Sit Standby Assistance Sit to Supine Sit to Supine Contact Guard Assistance Scooting Scooting to Edge of Bed Standby Assistance PT-Transfer Assessment Sit to and From Stand Sit to and from Stand Standby Assistance 1 Person Assistance Use of Upper Extremities Equipment Transfer Assistive Device Gait Belt Front Wheeled Walker Orthotic/Prosthetic Devices or Brace: No Transfers Transfer Destination Bed Toilet Transfer Technique Stand Step Pivot Transfer Ability Level of Assist Standby Assistance Comments Mobility Comments Pt able to transfer to/from toilet with SBA and FWW. Decreasing WBing through UEs this afternoon. Gait Assessment Gait Gait Assistance Required: Standby Assistance Distance (Feet) 120 Able to Maintain Weight Bearing Status Yes During Gait Assistive Devices Assistive Device Gait Belt Front Wheeled Walker Orthotic/Prosthetic Devices or Brace: No Gait Deviations General Gait Pattern Antalgic Decreased Stride Length Decreased Feet Clearance Factors Limiting Gait Function Factors Limiting Gait Function Decreased Activity Tolerance Decreased Strength Limited Range of Motion Pain Poor Balance Poor Safety Awareness Comments Gait Comments Gait training in room/[place] with FW and sBA for 120 feet with improved ability to WB through RLE. Stair Climbing Assessment Comments Stair Climbing Comments Pt comfprtable with stair training from this AM, will be able to get into/out of house with to assist. M5 PT-IP Objective Assessments Start: 06/10/18 17:10 Freq: NEEDED Status: Active Protocol: Document 06/10/18 16:30 AB (Rec: 06/10/18 17:20 AB [id number]) Orientation Orientation/Cognition Level of Alertness Alert Orientation Name Age Birthday Month Date Year Day of Week Place Situation Safety Awareness Understands Safety Issues Gross Range of Motion Lower Extremity ROM Assessment Right Impaired Impairments R knee flexion ~ 40 degrees Strength Lower Extremity Strength Assessment Bilaterally Impaired Comments Strength Comments RLE 3+/5 LLE: 4-/5 M6 PT-IP Treatment Start: 06/10/18 17:10 Freq: NEEDED Status: Active Protocol: Document 06/11/18 13:44 SA (Rec: 06/11/18 13:54 [id number]) Physical Therapy Treatment Exercises Exercises Ankle Pumps Gluteal Sets Quad Sets Heel Slides Short Arc Quads Seated Knee Flexion/Extension Education Education Provided Precautions Weight Bearing Status Post-Op Packet Safety Equipment Issued Equipment Type and Company Pt has personal FWW, elevated toilet seat and grab bar in bathroom. M7 PT-IP Assessment and Plan Start: 06/10/18 17:10 Freq: NEEDED Status: Active Protocol: Document 06/11/18 13:44 SA (Rec: 06/11/18 13:54 [id number]) PT Summary Assessment and Plan Potential Rehabilitation Potential Good Status of Condition at Evaluation Stable Summary Assessment Summary Pt to d/c this afternoon, discussed icing, HEP and OP PT with patient and daughter. Pt has equipment for home. Frequency of Treatment Frequency Of Treatment Twice a Day Recommendations To Nursing Amount of Assist Needed 1 Person Assist Discharge Recommendations PT Discharge Recommendations Home with Assistance Outpatient PT Equipment Needed for Home Before none Discharge
--- NOTE | 2018-06-11 14:19 | PC.NURSE ---
Pt had 100cc of output in hemovac. Taken out and pressure dressing applied
--- NOTE | 2018-06-11 15:23 | CM.IDA ---
Discharge Planning/Care Management CM Discharge Assessment Start: 06/11/18 15:17 Freq: Status: Active Protocol: Document 06/11/18 15:17 CHUNG (Rec: 06/11/18 15:23 CHUNG [id number]) Discharge Planning Assessment Assigned Slicing Machine Operator EDGAR Evans DPOA/Assigned Designee Name Gurpreet Simon, spouse Contact Information [phone] Advance Directives? No: Declines further information Advance Directives on File No History Provided By Patient Prior Living Arrangements House Household Members spouse children Type of transporation used prior to Drives own vehicle admit Independent with ADL's Yes Is patient alert and oriented? Yes Comment All DME needed in place per pt Comment No needs Barriers to Discharge No Comment Met w/pt and her dtr this morning, explained role. PT= Home w/family and outpt PT Pt wants to DC home today w/ spouse and dtr but admits to feeling a little anxious. No SW needs identified. Discharge Plan Home Transportation Arrangement Family Whiteboard Updated in Patient Room with Yes name and ext. # of Slicing Machine Operator Review Status In Process
== END 2018-06-11 14:21 | disposition home or self-care (01) ==
LOC: OR 09:09 → AC 14:17
PROVIDERS: PCP Anesthesiology; Visit Provider Orthopaedic Surgery
PROC: 0SRC0JZ Replacement of Right Knee Joint with Synthetic Substitute, Open Approach (ICD-10-PCS; CPT 27447; principal; 2018-06-10 10:30)
DX: M17.11 Unilateral primary osteoarthritis, right knee (principal); G89.18 Other acute postprocedural pain; E66.9 Obesity, unspecified; I10 Essential (primary) hypertension; E11.9 Type 2 diabetes mellitus without complications; S83.241A Other tear of medial meniscus, current injury, right knee, initial encounter; Z68.36 Body mass index [BMI] 36.0-36.9, adult
CPT/HCPCS: 27447; 36415; 64447; 73560; 85014; 85018; 97110; 97116; 97161; 97530; C1776; C9290; J0690; J2060; J2250; J2704; J3010; J3370